=== PATIENT | female | born 1990 | race Caucasian/White ===

== ENCOUNTER 2024-08-04 09:13 | Emergency (ER) | payer SELFPAY ==
--- NOTE | 2024-08-04 09:41 | ER ---
Nurse's Notes [facility] Name: Elenita Palmer Age: 34 yrs Sex: Female : 1990 Arrival Date: 08/04/2024 Time: 09:13 Bed 12 Private MD: Diagnosis: Acute upper respiratory infection, unspecified;Cough Presentation: 08/04 09:27 Chief complaint: Patient states: "off and on flu like symptoms that began 2 weeks ss ago.". Coronavirus screen: Client denies travel out of the [place] in the last 14 days. Ebola Screen: Patient denies exposure to infectious person. Patient denies travel to an Ebola-affected area in the 21 days before illness onset. Initial Sepsis Screen: Does the patient meet any 2 criteria? No. Patient's initial sepsis screen is negative. Does the patient have a suspected source of infection? No. Patient's initial sepsis screen is negative. Risk Assessment: Do you want to hurt yourself or someone else? Patient reports no desire to harm self or others. Onset of symptoms was July 21, 2024. 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 - Infectious Disease History:: Denies. - Social history:: Smoking status: Patient denies any tobacco usage or history of. - Family history:: not pertinent. Screenin:33 Abuse screen: Denies threats or abuse. Denies injuries from another. Nutritional ss screening: No deficits noted. Tuberculosis screening: Never had TB. 11:00 [facility] ED Fall Risk Assessment (Adult) History of falling in the last 3 months, ss including since admission No falls in past 3 months (0 pts) Confusion or Disorientation No (0 pts) Intoxicated or Sedated No (0 pts) Impaired Gait No (0 pts) Mobility Assist Device Used No (0 pt) Altered Elimination No (0 pt) Score/Fall Risk Level 0 - 2 = Low Risk Oriented to surroundings, Maintained a safe environment. Assessment: 09:33 General: Appears in no apparent distress. comfortable, Behavior is calm, cooperative, ss Reports feeling ill, chills and fever that has been intermittent x 2 weeks. Family members have been ill at home with similar symptoms as well. Neuro: Level of Consciousness is awake, alert, obeys commands, Oriented to person, place, time, situation. Respiratory: Airway is patent Respiratory effort is even, unlabored, Respiratory pattern is regular, symmetrical. GI: Reports nausea, since today. : Denies burning with urination. Derm: Skin is pink, warm \\T\\ dry. normal. 09:59 Reassessment: Pt up for discharge pending swab results. ss 10:30 Reassessment: Called microbiology lab and spoke with Ray who states the test results ss still have 15 minutes. 11:00 Reassessment: Patient appears in no apparent distress at this time. Patient and/or ss family updated on plan of care and expected duration. Pain level reassessed. Patient is alert, oriented x 3, equal unlabored respirations, skin warm/dry/pink. Vital Signs: 09:27 BP 144 / 81; Pulse 87; Resp 16; Temp 98.6(TE); Pulse Ox 100% on R/A; Weight 108.86 kg; ss Height 5 ft. 3 in. ; Pain 0/10; 09:27 Body Mass Index 42.51 (108.86 kg, 160.02 cm) ss 09:27 Pain Scale: Adult ss ED Course: 09:15 Patient arrived in ED. al6 09:19 [facility]. cp 09:19 Arash Wilson MD is Attending Physician. cp 09:27 Tiffanie Gay, ARASELI is Primary Nurse. ss 09:27 Arm band placed on left wrist. ss 09:28 Triage completed. ss 09:33 Patient has correct armband on for positive identification. Bed in low position. ss 09:33 COVID-19 Ag + Flu A+B Ag Sent. ss 09:33 No provider procedures requiring assistance completed. Patient did not have IV access ss during this emergency room visit. 09:39 Gavin Cain DO is Referral Physician. sherif Administered Medications: 09:33 Not Given (Pt states she took some prior to arrival.): [id number] mg PO once ss 10:13 Drug: AZITHromycin PO 500 mg PO once Route: PO; ss 10:34 Follow up: Response: No adverse reaction ss Medication: 09:33 VIS not applicable for this client. ss Outcome: :40 Discharge ordered by . sherif 11:00 Discharged to home ambulatory, 11:00 Condition: good 11:00 Discharge instructions given to patient, family, Instructed on discharge instructions, follow up and referral plans. medication usage, Demonstrated understanding of instructions, follow-up care, medications, Prescriptions given X 3, 11:06 Patient left the ED. ss Signatures: Arash Wilson MD MD cha Blanchard, Shelby, ARASELI RN Arash Tuttle PA PA cp Landin, Alissa al6
--- NOTE | 2024-08-04 09:41 | EDPHYS ---
Physician Documentation [facility] Name: Elenita Palmer Age: 34 yrs Sex: Female : 1990 Arrival Date: 08/04/2024 Time: 09:13 Bed 12 Private MD: TAYLOR Physician Arash Wilson HPI: 08/04 09:35 This 34 yrs old Female presents to ER via Ambulatory with complaints of Flu sherif Symptoms. 09:35 uri on off 2 weeks. The patient or guardian reports cough, flu symptoms, arthralgias, sherif low-grade fever, myalgias. Severity of symptoms: At their worst the symptoms were mild, in the emergency department the symptoms are unchanged. Modifying factors: The symptoms are alleviated by nothing, the symptoms are aggravated by nothing. Associated signs and symptoms: Pertinent positives: rhinorrhea, sore throat. Severity of symptoms: At their worst the symptoms were mild this morning, in the emergency department the symptoms are unchanged. The patient has experienced similar episodes in the past, multiple times. 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 - Infectious Disease History:: Denies. - Social history:: Smoking status: Patient denies any tobacco usage or history of. - Family history:: not pertinent. ROS: 09:35 Constitutional: Negative for fever, chills, and weight loss, Eyes: Negative for injury, sherif pain, redness, and discharge, ENT: Negative for injury, pain, and discharge, Neck: Negative for injury, pain, and swelling, Cardiovascular: Negative for chest pain, palpitations, and edema, Abdomen/GI: Negative for abdominal pain, nausea, vomiting, diarrhea, and constipation, Back: Negative for injury and pain, : Negative for injury, bleeding, discharge, and swelling, MS/Extremity: Negative for injury and deformity, Skin: Negative for injury, rash, and discoloration, Neuro: Negative for headache, weakness, numbness, tingling, and seizure, Psych: Negative for depression, anxiety, suicide ideation, homicidal ideation, and hallucinations, Allergy/Immunology: Negative for hives, rash, and allergies, Endocrine: Negative for neck swelling, polydipsia, polyuria, polyphagia, and marked weight changes, Hematologic/Lymphatic: Negative for swollen nodes, abnormal bleeding, and unusual bruising, 09:35 Respiratory: Positive for cough, with no reported sputum, Exam: 09:35 Constitutional: This is a well developed, well nourished patient who is awake, alert, sherif and in no acute distress. Head/Face: Normocephalic, atraumatic. Eyes: Pupils equal round and reactive to light, extra-ocular motions intact. Lids and lashes normal. Conjunctiva and sclera are non-icteric and not injected. Cornea within normal limits. Periorbital areas with no swelling, redness, or edema. ENT: Nares patent. No nasal discharge, no septal abnormalities noted. Tympanic membranes are normal and external auditory canals are clear. Oropharynx with no redness, swelling, or masses, exudates, or evidence of obstruction, uvula midline. Mucous membranes moist. Neck: Trachea midline, no thyromegaly or masses palpated, and no cervical lymphadenopathy. Supple, full range of motion without nuchal rigidity, or vertebral point tenderness. No Meningismus. Chest/axilla: Normal chest wall appearance and motion. Nontender with no deformity. No lesions are appreciated. Cardiovascular: Regular rate and rhythm with a normal S1 and S2. No gallops, murmurs, or rubs. Normal PMI, no JVD. No pulse deficits. Abdomen/GI: Soft, non-tender, with normal bowel sounds. No distension or tympany. No guarding or rebound. No evidence of tenderness throughout. Back: No spinal tenderness. No costovertebral tenderness. Full range of motion. Skin: Warm, dry with normal turgor. Normal color with no rashes, no lesions, and no evidence of cellulitis. MS/ Extremity: Pulses equal, no cyanosis. Neurovascular intact. Full, normal range of motion., bilateral aka Neuro: Awake and alert, GCS 15, oriented to person, place, time, and situation. Cranial nerves II-XII grossly intact. Motor strength 5/5 in all extremities. Sensory grossly intact. Cerebellar exam normal. Normal gait. Psych: Awake, alert, with orientation to person, place and time. Behavior, mood, and affect are within normal limits. 09:35 Respiratory: the patient does not display signs of respiratory distress, Respirations: normal, Breath sounds: are clear throughout, rhonchi, that are mild, are scattered, stridor, is not appreciated, wheezing: is not appreciated, Respiratory rate: 16 Vital Signs: 09:27 BP 144 / 81; Pulse 87; Resp 16; Temp 98.6(TE); Pulse Ox 100% on R/A; Weight 108.86 kg; ss Height 5 ft. 3 in. ; Pain 0/10; 09:27 Body Mass Index 42.51 (108.86 kg, 160.02 cm) 09:27 Pain Scale: Adult ss MDM: 09:25 Medical Screening Exam initiated [facility] 09:38 Differential Diagnosis flu, Bronchitis Influenza Upper Respiratory Infection sherif Pharyngitis Viral Syndrome. Data reviewed: vital signs, nurses notes, lab test result(s), Flu: negative. Consideration of Admission/Observation Escalation of care including admission/observation considered. Test considered but Not performed: Labs: no cbc, no comp met. X-ray: no cxr necessary. Care significantly affected by the following chronic conditions: none. 08/04 09:20 Order name: COVID-19 Ag + Flu A+B Ag; Complete Time: 10:46 sherif Administered Medications: 09:33 Not Given (Pt states she took some prior to arrival.): [id number] mg PO once ss 10:13 Drug: AZITHromycin PO 500 mg PO once Route: PO; 10:34 Follow up: Response: No adverse reaction ss Disposition Summary: 08/04/24 09:40 Discharge Ordered Notes: Location: Home [facility] Problem: new [facility] Symptoms: have improved sherif Condition: Stable sherif Diagnosis - Acute upper respiratory infection, unspecified sherif - Cough sherif Followup: sherif - With: Private Physician - When: 2 - 3 days - Reason: Recheck today's complaints, Continuance of care, Re-evaluation by your physician Followup: sherif - With: Gavin Cain DO - When: 2 - 3 days - Reason: Recheck today's complaints, Re-evaluation by your physician Discharge Instructions: - Discharge Summary Sheet sherif - Upper Respiratory Infection, Adult sherif - Cool Mist Vaporizer sherif - Upper Respiratory Infection, Adult, [id number] sherif - Cough, Adult, [id number] sherif - Cough, Adult sherif Forms: - Work release form bd - Medication Reconciliation Form sherif - Antibiotic Education sherif - Prescription Opioid Use sherif - Patient Portal Instructions [facility] - Leadership Thank You Letter [facility] Prescriptions: - Bromfed DM 2-30-10 mg/5 mL Oral syrup - administer 7.5 milliliter ORAL route every 6 hours prn cough; 160 milliliter; sherif Refills: 0, Product Selection Permitted - Medrol (Harish) 4 mg Oral Tablets, Dose Pack - take 1 tablet ORAL route as directed - follow package instructions; 1 packet; [facility] Refills: 0, Product Selection Permitted - Zithromax 500 mg Oral tablet - take 1 tablet ORAL route once daily for 4 days begin 08/05/24; 4 tablet; [facility] Refills: 0, Product Selection Permitted Signatures: Dispatcher [employer] EDArash Anne MD MD cha Blanchard, Shelby RN RN ss Corrections: (The following items were deleted from the chart) 09:20 09:20 COVID-19 Ag + Flu A+B Ag+I.LAB.BRZ ordered. EDMS EDMS
[2024-08-04] MEDS ORDERED: AZITHROMYCIN 250 MG TAB ONE (10:05)
[2024-08-04 10:44] LABS: Influenza A Ag Negative; Influenza B Ag Negative; SARS-CoV-2 Antigen Rapid Res Negative (Negative)
[2024-08-04 11:12] VITALS: BP 144/81; TEMP 98.6; O2SAT 100
== END 2024-08-04 11:06 | disposition home or self-care (01) ==
LOC: ER 09:13
DX: J06.9 Acute upper respiratory infection, unspecified (principal); Z11.52 Encounter for screening for COVID-19
CPT/HCPCS: 36415; 87428; 99283

== ENCOUNTER 2024-12-31 14:47 | Emergency (ER) | payer SELFPAY ==
[2024-12-31 15:43] LABS: Influenza A Ag Negative; Influenza B Ag Negative; SARS-CoV-2 Antigen Rapid Res Negative (Negative)
--- NOTE | 2024-12-31 15:52 | RAD REPORT ---
EXAM: Chest Pa And Lat (2 Views) HISTORY: 34 years Female Congestion;Cough COMPARISON: No prior exams FINDINGS: LUNGS/PLEURA: The lungs are clear. No pleural effusions or pneumothorax. No pulmonary edema. CARDIAC/MEDIASTINUM: The cardiac silhouette is within normal limits. UPPER ABDOMEN: No significant abnormality. BONES: No acute abnormality. LINES/TUBES/OTHER: N/A IMPRESSION: No evidence of acute cardiopulmonary disease.
--- NOTE | 2024-12-31 16:10 | ER ---
Nurse's Notes [facility] Name: Elenita Palmer Age: 34 yrs Sex: Female : 1990 Arrival Date: 12/31/2024 Time: 14:47 Bed 6 Private MD: Diagnosis: Acute upper respiratory infection, unspecified Presentation: 12/31 14:59 Chief complaint: Patient states: she has been feeling like she has a chest tightness ap3 from congestion that wont move. patient also reports nasal congestion, but no cough. patient also reports fatigue. patient states her symptoms started Sunday12/29/24. Coronavirus screen: Client presents with at least one sign or symptom that may indicate coronavirus-19. Ebola Screen: No symptoms or risks identified at this time. Initial Sepsis Screen: Does the patient meet any 2 criteria? No. Patient's initial sepsis screen is negative. Does the patient have a suspected source of infection? No. Patient's initial sepsis screen is negative. Risk Assessment: Do you want to hurt yourself or someone else? Patient reports no desire to harm self or others. Onset of symptoms was December 29, 2024. 14:59 Method Of Arrival: Ambulatory ap3 14:59 Acuity: DEANA 3 ap3 Triage Assessment: 15:06 General: Appears in no apparent distress. Behavior is calm, cooperative, appropriate ap3 for age. Pain: Complains of pain in chest. Neuro: Level of Consciousness is awake, alert, obeys commands, Oriented to person, place, time, situation, Appropriate for age. Cardiovascular: Patient's skin is warm and dry. Respiratory: Reports shortness of breath Airway is patent Respiratory effort is even, unlabored, Respiratory pattern is regular, symmetrical. Historical: - Allergies: 15:05 No Known Allergies; ap3 - PSHx: 15:05 adenoids; section; Tonsillectomy; ap3 - Immunization history:: Adult Immunizations up to date. - Infectious Disease History:: Denies. - Social history:: Smoking status: Reported history of juuling and/or vaping. Screenin:06 [facility] ED Fall Risk Assessment (Adult) History of falling in the last 3 months, ap3 including since admission No falls in past 3 months (0 pts) Confusion or Disorientation No (0 pts) Intoxicated or Sedated No (0 pts) Impaired Gait No (0 pts) Mobility Assist Device Used No (0 pt) Altered Elimination No (0 pt) Score/Fall Risk Level 0 - 2 = Low Risk Oriented to surroundings, Maintained a safe environment, Educated pt \T\ family on fall prevention, incl call for assistance when getting out of bed, Assessed \T\ reinforced patient's understanding of fall precautions, Hourly rounding (assess needs \T\ fall precautionary measures) done, Used ambulatory aids as needed (educated on \T\ assisted with). Abuse screen: Denies threats or abuse. Nutritional screening: No deficits noted. Tuberculosis screening: No symptoms or risk factors identified. Assessment: 15:14 General: Appears in no apparent distress. comfortable, Behavior is calm, cooperative, ph Reports fatigue for 2-3 days. Pain: Denies pain. Neuro: Level of Consciousness is awake, alert, obeys commands, Oriented to person, place, time, situation. Cardiovascular: Capillary refill < 3 seconds in bilateral fingers Patient's skin is warm and dry. Respiratory: Reports cough that is Airway is patent Respiratory effort is even, unlabored, Respiratory pattern is regular, symmetrical. GI: No signs and/or symptoms were reported involving the gastrointestinal system. Derm: Skin is pink, warm \T\ dry. Vital Signs: 14:59 BP 146 / 76; Pulse 92; Resp 17; Temp 98.1; Pulse Ox 100% ; Weight 108.86 kg; Height 5 ap3 ft. 3 in. ; 15:15 BP 149 / 76; Pulse 79; Resp 18; Pulse Ox 100% on R/A; ph 14:59 Body Mass Index 42.51 (108.86 kg, 160.02 cm) ap3 ED Course: 14:50 Patient arrived in ED. al6 14:51 Arthur Desouza FNP-C [facility]. dr5 14:51 Chrissy Cain MD is Attending Physician. dr5 15:05 Triage completed. ap3 15:06 Arm band placed on right wrist. ap3 15:07 Patient has correct armband on for positive identification. Bed in low position. Call ap3 light in reach. Side rails up X 1. Provided Education on: call light education. Pulse ox on. NIBP on. 15:07 Patient maintains SpO2 saturation greater than 95% on room air. ap3 15:14 Radha Borges, RN is Primary Nurse. ph 15:14 COVID-19 Ag + Flu A+B Ag Sent. ph 15:33 Chest Pa And Lat (2 Views) XRAY In Process Unspecified. EDMS 16:14 No provider procedures requiring assistance completed. Patient did not have IV access ph during this emergency room visit. Administered Medications: 15:14 Drug: Dexamethasone IM 10 mg IM once Route: IM; Site: right deltoid; ph 16:15 Follow up: Response: No adverse reaction ph Medication: 15:15 VIS not applicable for this client. ph Outcome: 16:09 Discharge ordered by . dr5 16:14 Discharged to home ambulatory, with significant other, ph 16:14 Condition: good 16:14 Discharge instructions given to patient, Instructed on discharge instructions, follow up and referral plans. medication usage, Demonstrated understanding of instructions, follow-up care, medications, Prescriptions given X 4, 16:15 Patient left the ED. ph Signatures: Dispatcher [employer] EDRadha Waller RN RN ph Prokisch, Amanda, RN RN ap3 Arthur Desouza, [employer] SUPERINTENDENT-C [employer] SUPERINTENDENT-[facility]5 Daisha Leahy
--- NOTE | 2024-12-31 16:10 | EDPHYS ---
Physician Documentation [facility] Name: Elenita Palmer Age: 34 yrs Sex: Female : 1990 Arrival Date: 12/31/2024 Time: 14:47 Bed 6 Private MD: ED Physician Chrissy Cain HPI: 12/31 16:19 This 34 yrs old Female presents to ER via Ambulatory with complaints of dr5 Cough, Congestion. 16:19 Onset: The symptoms/episode began/occurred 2 day(s) ago. . dr5 Historical: - Allergies: 15:05 No Known Allergies; ap3 - PSHx: 15:05 adenoids; section; Tonsillectomy; ap3 - Immunization history:: Adult Immunizations up to date. - Infectious Disease History:: Denies. - Social history:: Smoking status: Reported history of juuling and/or vaping. Vital Signs: 14:59 BP 146 / 76; Pulse 92; Resp 17; Temp 98.1; Pulse Ox 100% ; Weight 108.86 kg; Height 5 ap3 ft. 3 in. ; 15:15 BP 149 / 76; Pulse 79; Resp 18; Pulse Ox 100% on R/A; ph 14:59 Body Mass Index 42.51 (108.86 kg, 160.02 cm) ap3 MDM: 14:51 Medical Screening Exam initiated dr5 12/31 15:04 Order name: COVID-19 Ag + Flu A+B Ag; Complete Time: 15:47 dr5 12/31 15:04 Order name: Chest Pa And Lat (2 Views) XRAY; Complete Time: 15:54 dr5 Administered Medications: 15:14 Drug: Dexamethasone IM 10 mg IM once Route: IM; Site: right deltoid; ph 16:15 Follow up: Response: No adverse reaction ph Disposition Summary: 12/31/24 16:09 Discharge Ordered Notes: Location: Home dr5 Condition: Stable dr5 Diagnosis - Acute upper respiratory infection, unspecified dr5 Followup: dr5 - With: Emergency Department - When: As needed - Reason: Worsening of condition Followup: dr5 - With: Private Physician - When: 1 - 2 days - Reason: Recheck today's complaints, Continuance of care, Re-evaluation by your physician Discharge Instructions: - Discharge Summary Sheet dr5 - Upper Respiratory Infection, Adult dr5 Forms: - Medication Reconciliation Form dr5 - Patient Portal Instructions dr5 - Leadership Thank You Letter dr5 Prescriptions: - Bromfed DM 2-30-10 mg/5 mL Oral syrup - administer 10 milliliter ORAL route every 12 hours as needed for sinus dr5 symptoms; 240 milliliter; Refills: 0, Product Selection Permitted - Zofran 4 mg Oral Tablet - take 1 tablet ORAL route every 12 hours As needed; 20 tablet; Refills: 0, dr5 Product Selection Permitted - Zithromax Z-Harish 250 mg Oral Tablet - take 1 tablet ORAL route as directed for 5 days Day 1 - take two (2) tablets dr5 one time. Day 2, 3, 4 , 5 take one (1) tablet once daily.; 6 tablet; Refills: 0, Product Selection Permitted - Medrol (Harish) 4 mg Oral Tablets, Dose Pack - take 1 tablet ORAL route as directed - follow package instructions; 1 packet; dr5 Refills: 0, Product Selection Permitted Signatures: Dispatcher [employer] EDRadha Waller, RN RN Malgorzata Hercules RN RN ap3 Arthur Desouza, [employer]TER-C [employer]-Cdr5 Corrections: (The following items were deleted from the chart) 15:04 15:04 COVID-19 Ag + Flu A+B Ag+I.LAB.BRZ ordered. EDMS EDMS 15:05 15:05 Chest Pa And Lat (2 Views)+RAD.RAD.BRZ ordered. EDMS EDMS
[2024-12-31 16:20] VITALS: TEMP 98.1; O2SAT 100
[2024-12-31 16:21] VITALS: BP 149/76
== END 2024-12-31 16:15 | disposition home or self-care (01) ==
LOC: ER 14:47
DX: J06.9 Acute upper respiratory infection, unspecified (principal); Z11.52 Encounter for screening for COVID-19; F17.290 Nicotine dependence, other tobacco product, uncomplicated
CPT/HCPCS: 36415; 71046; 87428; 96372; 99284; J1100

== ENCOUNTER 2025-01-01 03:10 | Emergency (ER) | payer SELFPAY ==
[2025-01-01 04:09] LABS: Absolute Lymphocytes (CBC) 0.8 K/uL (0.7-4.9); Hematocrit 41.8 % (36.0-45.0); Hemoglobin 14.3 g/dL (12.0-15.0); MCH 31.5 pg (27.0-35.0); MCHC 34.2 g/dL (32.0-36.0); MCV 92.3 fL (80-100); MPV 9.2 fL (7.6-11.3); Nucleated RBC Absolute Count 0.0 (0-0); Nucleated Red Blood Cells % 0.0 % (0-0); RBC Red Blood Cell Count 4.53 M/uL (3.86-4.86); White Blood Count 15.20 thou/uL (4.3-10.9)
[2025-01-01 04:17] LABS: Anion Gap 12.9 mEq/L (5.0-15.0); BUN Blood Urea Nitrogen 9.0 mg/dL (7-18); Glucose Level 125.0 mg/dL (74-106); Magnesium 1.8 mg/dL (1.6-2.4); Potassium 3.9 mEq/L (3.5-5.1)
[2025-01-01 04:49] LABS: Differential Total Cells Count 100; Segmented Neutrophils 77 % (40-80)
[2025-01-01 04:50] LABS: Blood Morphology Comment NOT SEEN (NOT SEEN)
--- NOTE | 2025-01-01 05:11 | RAD REPORT ---
PROCEDURE: CT Head Without Intravenous Contrast CLINICAL INDICATION: The patient is 34 years old and is Female; Paresthesias. TECHNIQUE: Axial computed tomography images of the head/brain without intravenous contrast. Sagittal and coron al reformatted images were created and reviewed. This CT exam was performed using one or more of the following dose reduction techniques: automated exposure control, adjustment of the mA and/or kV according to patient size, and/or use of iterative reconstruction technique. COMPARISON: None. FINDINGS: BRAIN: No extra-axial fluid collection. No intracranial hemorrhage. No transtentorial herniation. N o focal beal-white matter differentiation abnormality. No appreciable mass effect or white matter edema. MIDLINE SHIFT: None. VENTRICLES: Unremarkable No ventriculomegaly. BONES/JOINTS: No fracture of the calvarium or visualized facial bones. SOFT TISSUES: Unremarkable SINUSES: No masses, bony erosion or evidence of acute sinusitis. MASTOID AIR CELLS: Unremarkable as visualized. No mastoid effusion. IMPRESSION: No acute intracranial abnormality. Electronically signed by: Lucien Velarde MD 01/01/2025 05:07 AM CDT Due to temporary technical issues with the PACS/[employer] reporting system, reports are being annette d by the in-house radiologist without review as a courtesy to ensure prompt reporting the interpreting radiologist is fully responsible for the content of the report. Transcribed Date/Time: 01/01/2025 5:11 AM
--- NOTE | 2025-01-01 05:24 | ER ---
Nurse's Notes [facility] Name: Elenita Palemr Age: 34 yrs Sex: Female : 1990 Arrival Date: 01/01/2025 Time: 03:10 Bed 8 Private MD: Diagnosis: Paresthesia of skin;Adverse effect of other drugs, medicaments and biological substances Presentation: 01/01 03:34 Chief complaint: Patient states: pain and tingling to left arm and leg. Coronavirus lg3 screen: Client denies travel out of the [place] in the last 14 days. At this time, the client does not indicate any symptoms associated with coronavirus-19. Ebola Screen: No symptoms or risks identified at this time. Initial Sepsis Screen: Does the patient meet any 2 criteria? No. Patient's initial sepsis screen is negative. Does the patient have a suspected source of infection? No. Patient's initial sepsis screen is negative. Risk Assessment: Do you want to hurt yourself or someone else? Patient reports no desire to harm self or others. Onset of symptoms was January 01, 2025. 03:34 Method Of Arrival: Ambulatory lg3 03:34 Acuity: DEANA 3 lg3 Triage Assessment: 03:36 General: Appears in no apparent distress. comfortable, Behavior is calm, cooperative. lg3 Pain: Complains of pain in left arm and left leg Pain does not radiate. Pain currently is 2 out of 10 on a pain scale. Quality of pain is described as tingling. EENT: No deficits noted. No signs and/or symptoms were reported regarding the EENT system. Neuro: No deficits noted. Juarez Agitation-Sedation Scale (RASS): 0 - Alert and Calm Level of Consciousness is awake, alert, obeys commands, Oriented to person, place, time, situation. Cardiovascular: No deficits noted. Denies chest pain, shortness of breath, Capillary refill < 3 seconds Clubbing of nail beds is absent JVD is absent Patient's skin is warm and dry. Respiratory: No deficits noted. Airway is patent Respiratory effort is even, unlabored, Respiratory pattern is regular, symmetrical. GI: No deficits noted. No signs and/or symptoms were reported involving the gastrointestinal system. Abdomen is round non-distended, obese. : No signs and/or symptoms were reported regarding the genitourinary system. Derm: No deficits noted. Skin is intact, is healthy with good turgor, Skin is dry, Skin is normal, Skin temperature is warm. Musculoskeletal: Circulation, motion, and sensation intact. Range of motion: intact in all extremities, Reports tingling in left arm and leg. 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 - Infectious Disease History:: Denies. - Social history:: Smoking status: Reported history of juuling and/or vaping. Patient uses alcohol, but reports only rare drinking. Patient/guardian denies using street drugs. - Family history:: not pertinent. - Hospitalizations: : No recent hospitalization is reported. Screenin:38 [facility] ED Fall Risk Assessment (Adult) History of falling in the last 3 months, lg3 including since admission No falls in past 3 months (0 pts) Confusion or Disorientation No (0 pts) Intoxicated or Sedated No (0 pts) Impaired Gait No (0 pts) Mobility Assist Device Used No (0 pt) Altered Elimination No (0 pt) Score/Fall Risk Level 0 - 2 = Low Risk Oriented to surroundings, Maintained a safe environment, Educated pt \T\ family on fall prevention, incl call for assistance when getting out of bed, Assessed \T\ reinforced patient's understanding of fall precautions. Abuse screen: Denies threats or abuse. Denies injuries from another. Nutritional screening: No deficits noted. Tuberculosis screening: No symptoms or risk factors identified. Assessment: 03:38 General: see triage assessment. lg3 05:03 Reassessment: Patient appears in no apparent distress at this time. No changes from lg3 previously documented assessment. Patient and/or family updated on plan of care and expected duration. Pain level reassessed. Patient is alert, oriented x 3, equal unlabored respirations, skin warm/dry/pink. Vital Signs: 03:34 BP 154 / 79; Pulse 85; Resp 16 S; Temp 97.8(O); Pulse Ox 99% on R/A; Weight 108.86 kg lg3 (R); Height 5 ft. 3 in. (R); Pain 2/10; 05:03 BP 145 / 74; Pulse 74; Resp 16 S; Pulse Ox 100% on R/A; lg3 03:34 Body Mass Index 42.51 (108.86 kg, 160.02 cm) lg3 03:34 Pain Scale: Adult lg3 ED Course: 03:14 Patient arrived in ED. gm2 03:16 Brayan Ricardo MD is Attending Physician. rn 03:36 Triage completed. lg3 03:36 Arm band placed on right wrist. lg3 03:38 Patient has correct armband on for positive identification. Placed in gown. Bed in low lg3 position. Call light in reach. Side rails up X 1. Client placed on continuous cardiac and pulse oximetry monitoring. NIBP monitoring applied. Door closed. Noise minimized. Warm blanket given. Pillow given. Family accompanied patient. 03:39 Keily Luis RN is Primary Nurse. lg3 03:50 Initial lab(s) drawn, by ED staff, sent to lab. Inserted saline lock: 20 gauge in right lg3 antecubital area, using aseptic technique. Blood collected. Flushed with 10 mL NS. 03:50 CBC with Diff Sent. lg3 03:50 Basic Metabolic Panel Sent. lg3 03:50 Magnesium Sent. lg3 04:26 CT Head Brain wo Cont In Process Unspecified. EDMS 05:27 Provided Education on: post er care. bm8 05:27 No provider procedures requiring assistance completed. IV discontinued, intact, bm8 bleeding controlled, No redness/swelling at site. Pressure dressing applied. Administered Medications: No medications were administered Medication: 03:38 VIS not applicable for this client. lg3 Outcome: 05:23 Discharge ordered by . rn 05:28 Discharged to home ambulatory, with family, bm8 05:28 Condition: stable 05:28 Discharge instructions given to patient, family, Instructed on discharge instructions, follow up and referral plans. no drinking with medication, no driving heavy equipment, medication usage, safety practices, Demonstrated understanding of instructions, follow-up care, medications, 05:29 Patient left the ED. bm8 Signatures: Dispatcher [employer] EDMS Brayan Ricardo MD MD rn Able, Lacie, RN RN lg3 Mariana Beck gm2 Mesfin Agee, RN RN bm8
--- NOTE | 2025-01-01 05:24 | EDPHYS ---
Physician Documentation [facility] Name: Elenita Palmer Age: 34 yrs Sex: Female : 1990 Arrival Date: 01/01/2025 Time: 03:10 Bed 8 Private MD: ED Physician Brayan Ricardo HPI: 01/01 03:45 This 34 yrs old Female presents to ER via Ambulatory with complaints of possible rn reaction to medication, Numbness. 03:45 Patient reports seen here yesterday for upper respiratory infection and cold-like rn symptoms. States workup was negative and was given Decadron IM. Went home and started feeling soreness in the left leg and the left arm that alternates with intermittent tingling. No headache or vision changes. No shortness of breath.. 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 - Infectious Disease History:: Denies. - Social history:: Smoking status: Reported history of juuling and/or vaping. Patient uses alcohol, but reports only rare drinking. Patient/guardian denies using street drugs. - Family history:: not pertinent. - Hospitalizations: : No recent hospitalization is reported. ROS: 03:45 Constitutional: Negative for fever, chills, and weight loss, Neck: Negative for injury, rn pain, and swelling, Cardiovascular: Negative for chest pain, palpitations, and edema, Respiratory: Negative for shortness of breath, wheezing, and pleuritic chest pain, Abdomen/GI: Negative for abdominal pain, nausea, vomiting, diarrhea, and constipation, Back: Negative for injury and pain, MS/Extremity: Negative for injury and deformity, Neuro: Negative for headache, weakness, and seizure, Exam: 03:45 Constitutional: This is a well developed, well nourished patient who is awake, alert, rn and in no acute distress. Head/Face: Normocephalic, atraumatic. Neck: No meningismus or stiffness Cardiovascular: Regular rate and rhythm. No pulse deficits. Respiratory: Speaking full sentences, unlabored. MS/ Extremity: Pulses equal, no cyanosis. Neurovascular intact. Full, normal range of motion. Equal circumference. Neuro: Awake and alert, GCS 15, oriented to person, place, time, and situation. Cranial nerves II-XII grossly intact. Motor strength 5/5 in all extremities. Sensory grossly intact. Cerebellar exam normal. Normal gait. Vital Signs: 03:34 BP 154 / 79; Pulse 85; Resp 16 S; Temp 97.8(O); Pulse Ox 99% on R/A; Weight 108.86 kg lg3 (R); Height 5 ft. 3 in. (R); Pain 2/10; 05:03 BP 145 / 74; Pulse 74; Resp 16 S; Pulse Ox 100% on R/A; lg3 03:34 Body Mass Index 42.51 (108.86 kg, 160.02 cm) lg3 03:34 Pain Scale: Adult lg3 MDM: 03:16 Medical Screening Exam initiated rn 05:15 Differential diagnosis: metabolic disorder, drug effects. Data reviewed: vital signs, rn nurses notes, lab test result(s), radiologic studies, CT scan, and as a result, I will discharge patient. Independent interpretation of the following test(s) in the Emergency Department CT Scan: My interpretation is CT head images negative for acute hemorrhage or mass per my interpretation. Counseling: I had a detailed discussion with the patient and/or guardian regarding the historical points, exam findings, and any diagnostic results supporting the discharge/admit diagnosis, lab results, radiology results, the need for outpatient follow up, to return to the emergency department if symptoms worsen or persist or if there are any questions or concerns that arise at home. Special discussion: I discussed with the patient/guardian in detail that at this point there is no indication for admission to the hospital. It is understood, however, that if the symptoms persist or worsen the patient needs to return immediately for re-evaluation. 01/01 03:33 Order name: CBC with Diff; Complete Time: 05:12 rn 01/01 03:33 Order name: Basic Metabolic Panel; Complete Time: 04:43 rn 01/01 03:33 Order name: Magnesium; Complete Time: 04:43 rn 01/01 04:17 Order name: Manual Differential; Complete Time: 05:12 EDMS 01/01 03:33 Order name: CT Head Brain wo Cont rn 01/01 03:33 Order name: IV Start; Complete Time: 03:50 rn Administered Medications: No medications were administered Disposition Summary: 01/01/25 05:23 Discharge Ordered Notes: Location: Home rn Problem: new rn Symptoms: have improved rn Condition: Stable rn Diagnosis - Paresthesia of skin rn - Adverse effect of other drugs, medicaments and biological substances rn Followup: rn - With: Private Physician - When: As needed - Reason: Recheck today's complaints, Re-evaluation by your physician Discharge Instructions: - Discharge Summary Sheet rn - Paresthesia rn Forms: - Medication Reconciliation Form rn - Antibiotic information technology internship - Prescription Opioid Use rn - Patient Portal Instructions rn - Leadership Thank You Letter rn Signatures: Dispatcher [employer] Brayan Nieves MD MD rn Able, Lacie, RN RN lg3
[2025-01-01 05:33] VITALS: TEMP 97.8
[2025-01-01 05:34] VITALS: BP 145/74; O2SAT 100
== END 2025-01-01 05:29 | disposition home or self-care (01) ==
LOC: ER 03:10
DX: R20.2 Paresthesia of skin (principal); T50.995A Adverse effect of other drugs, medicaments and biological substances, initial encounter
CPT/HCPCS: 36415; 70450; 80048; 83735; 85025; 99284